=== PATIENT | female | born 1975 | race African-American/Black ===

== ENCOUNTER 2017-12-16 05:59 | Emergency (ER) | payer BC ==
[~2017-12-16] VITALS: Ht 162.6 cm; Wt 97.5 kg
[~2017-12-16 05:59] MED LIST: IBUP800T23 PO; METR-1 PO
[2017-12-16 06:01] VITALS: BP 172/80; PULSE 110; RESP 16; TEMP 97.6; O2SAT 100
[2017-12-16] MEDS ORDERED: KETOROLAC TROMETHAMINE 60 MG/2 ML (IM) VIAL IM ONE (06:15)
[2017-12-16] MEDS ORDERED: ORPHENADRINE INJ 60 MG/2 ML AMP IM ONE (06:15)
[2017-12-16] MEDS ORDERED: IBUP1TAB7 PO (06:39)
[2017-12-16] MEDS ORDERED: CYCL10TA PO (06:39)
--- NOTE | 2017-12-16 06:40 | PD ---
HPI Chief Complaint: Fall Time Seen by Provider: 06:14 Travel History International Travel<30 days: No Contact w/Intl Traveler<30days: No Traveled to known affect area: No History of Present Illness HPI Patient is a 42-year-old female presenting to the emergency department for evaluation of right shoulder, right hip and right foot pain. Patient states she was walking off of her porch yesterday when she slipped on a stepping stone falling onto her right side. Patient denies any head injury or loss of consciousness. She reports that the pain is worse today than it was yesterday when she fell. She denies any bruising, dizziness, chest pain, shortness of breath, abdominal pain. Patient is able to move all extremities and ambulate however she states is sore and painful. She reports pain is a 7 out of 10, she has not taken any medications to alleviate the pain. Patient symptoms are exacerbated with movement. Symptoms are somewhat relieved with rest. PFSH Past Medical History Medical History: Denies Significant Hx Tetanus Vaccination: < 5 Years Influenza Vaccination: Yes ?: Not LMP: 12/12/17 Past Surgical History Surgical History: No Previous Surgery Social History Alcohol Use: No (socially) Tobacco Use: No Substance Use: No Allergies-Medications (Allergen,Severity, Reaction): Coded Allergies: No Known Drug Allergies (Verified Allergy, Unknown, 12/16/17) Review of Systems Except as stated in HPI: all other systems reviewed are Neg Musculoskeletal: Positive: Myalgias, Arthralgias, Pain Physical Exam Narrative GENERAL: Well-developed, well-nourished, alert -[place] female. Presenting comfortably in no acute distress. SKIN: Warm and dry. HEAD: Atraumatic. Normocephalic. EYES: Pupils equal and round. No scleral icterus. No injection or drainage. ENT: No nasal bleeding or discharge. Mucous membranes pink and moist. NECK: Trachea midline. No JVD. CARDIOVASCULAR: Regular rate and rhythm. RESPIRATORY: No accessory muscle use. Clear to auscultation. Breath sounds equal bilaterally. GASTROINTESTINAL: Abdomen soft, non-tender, nondistended. Hepatic and splenic margins not palpable. MUSCULOSKELETAL: Extremities without clubbing, cyanosis, or edema. No obvious deformities. Full range of motion with abduction, flexion and extension of right shoulder. No tenderness to palpation. Patient is ambulatory, gait is steady. 2+ dorsalis pedal pulses bilaterally. NEUROLOGICAL: Awake and alert. No obvious cranial nerve deficits. Motor grossly within normal limits. Five out of 5 muscle strength in the arms and legs. Normal speech. PSYCHIATRIC: Appropriate mood and affect; insight and judgment normal. Data Data Last Documented VS Vital Signs Date Time Temp Pulse Resp B/P (MAP) Pulse Ox O2 Delivery O2 Flow Rate FiO2 12/16/17 06:01 97.6 110 16 172/80 (110) 100 Room Air Orders Orders Ketorolac Inj (Toradol Inj) (12/16/17 06:15) Orphenadrine Inj (Norflex Inj) (12/16/17 06:15) [facility] Medical Decision Making Medical Screen Exam Complete: Yes Emergency Medical Condition: Yes Interpretation(s) Vital Signs Date Time Temp Pulse Resp B/P (MAP) Pulse Ox O2 Delivery O2 Flow Rate FiO2 12/16/17 06:01 97.6 110 16 172/80 (110) 100 Room Air Differential Diagnosis Strain versus sprain versus discogenic pain versus less likely fracture. Narrative Course Patient is well-appearing 42-year-old female presenting 1 day after falling on her back porch. Exam is most consistent with musculoskeletal strain. Patient was given Toradol and Norflex in the emergency department. She was encouraged to continue conservative management at home, if conservative management fails she was encouraged to follow-up with her primary doctor. Patient verbalized understanding of instructions. Patient stable for discharge. Diagnosis Primary Impression: Fall Qualified Codes: W19.XXXA - Unspecified fall, initial encounter Additional Impressions: Muscle strain Muscle spasm Shoulder pain Qualified Codes: M25.511 - Pain in right shoulder Referrals: Primary Care Physician 1 week Patient Instructions: General Instructions, Muscle Spasm (ED), Muscle Strain ( ED) Departure Forms: Tests/Procedures, Work Release Enter return to work date: Dec 17, 2017 Additional Instructions: Follow-up with your primary doctor Alternate heat and ice the affected areas, continue range of motion exercises, avoid exacerbating activities, avoid bed rest Take medications as directed Return to the emergency department for any worsening symptoms Med/Other Pt SpecificInfo: Prescription(s) given Scripts Cyclobenzaprine (Flexeril) 10 Mg Tab 10 MG PO TID Y for MUSCLE SPASM, #30 TAB 0 Refills Prov: Ronda Mackey 12/16/17 Ibuprofen (Ibuprofen) 800 Mg Tab 800 MG PO Q6HR Y for PAIN, #40 TAB 0 Refills Prov: Ronda Mackey 12/16/17 Disposition: 01 DISCHARGE HOME Condition: Stable Ronda Mackey Dec 16, 2017 06:40
== END 2017-12-16 06:57 | disposition home or self-care (01) ==
LOC: MERGE 05:59 → NEPD 05:59
DX: T14.8XXA Other injury of unspecified body region, initial encounter (principal); W01.0XXA Fall on same level from slipping, tripping and stumbling without subsequent striking against object, initial encounter; M62.838 Other muscle spasm; M25.511 Pain in right shoulder
CPT/HCPCS: 96372; 99283; J1885; J2360